=== PATIENT | female | born 1945 | race Caucasian/White ===

== ENCOUNTER 2021-07-06 14:26 | Emergency (ER) | payer MEDICARE, BC | END 2021-07-06 16:24 | disposition home or self-care (01) | LOC: ER1 14:26 | DX: M79.671 Pain in right foot (principal) | CPT/HCPCS: 73630; 99283 ==

== ENCOUNTER → 2022-03-20 | Outpatient (CLI) | payer MEDICARE, OTHER | LOC: EMI 03-09 16:00 | DX: M47.816 Spondylosis without myelopathy or radiculopathy, lumbar region (principal); M51.36 Other intervertebral disc degeneration, lumbar region; M54.50 Low back pain, unspecified | CPT/HCPCS: 72148 ==